=== PATIENT | female | born 1960 | race Caucasian/White ===

== ENCOUNTER 2019-10-02 05:45 | Emergency (ER) | payer OTHER, SELFPAY ==
--- NOTE | 2019-10-02 05:53 | DI.RAD.S_ITS ---
PROCEDURE: XR CHEST 1V INDICATIONS: chest pain TECHNIQUE: One view of the chest was acquired. COMPARISON: None. FINDINGS: Surgical changes and devices: None. Lungs and pleura: Lungs are clear. No pleural effusions or pneumothorax. Mediastinum: Mediastinal contours appear normal. Heart size is normal. Bones and chest wall: No suspicious bony lesions. Overlying soft tissues appear unremarkable. IMPRESSION: No acute cardiopulmonary abnormalities or focal airspace disease. Dictated by: Brandan Ceron M.D. on 10/02/2019 at 8:55 Approved by: Brandan Ceron M.D. on 10/02/2019 at 8:56
[2019-10-02 05:54] VITALS: BP 147/72; PULSE 67; RESP 18; TEMP 36.6; O2SAT 98; BMI 39.9
--- NOTE | 2019-10-02 05:55 | ED_ITS ---
HPI - Chest Pain <Trev MauricioDO jana - Last Filed: 10/03/19 03:43> General Chief Complaint: Chest Pain Stated Complaint: pain across shoulders/neck Time Seen by Provider: 10/02/19 05:45 Source: patient and family Mode of arrival: Ambulatory Limitations: no limitations History of Present Illness HPI narrative: 59-year-old female nonsmoker with history of morbid obesity and gallbladder disease presents with her significant other and a chief complaint of 2 episodes unprovoked mid to upper back pain and some left shoulder pain. The 1st episode was yesterday at 3:00 p.m. and the 2nd was this morning at 3:00 a.m. (3 hours ago). She denies any obvious provocation or palliation and admits to the radiation stated above. She denies any cardiac equivalent symptoms such as dizziness, weakness, lightheadedness nor shortness of breath, nausea, vomiting or diaphoresis. She denies any change in diet. She does state this feels not on like her gallbladder problems years ago. She denies any recent travel, history of blood clot, or cancer. MD complaint: other Onset (ago): hour(s) Duration: intermittent and improved Onset: during rest Pain location: left chest and other Severity: mild Quality: aching Pain radiation: back Relieving factors: nothing Exacerbating factors: nothing Treatments prior to arrival chest pain: none Related Data On Oral Contraceptives: No Home Medications Medication Instructions Recorded Confirmed cholecalciferol (vitamin D3) 10,000 u PO QDAY #0 11/15/16 [Vitamin D3] estradiol 1 mg PO EVERY OTHER DAY #0 11/15/16 furosemide [Lasix] 20 mg PO QDAY #0 11/15/16 lysine [L-Lysine] 1,000 mg PO QDAY #0 11/15/16 medroxyprogesterone 5 mg PO EVERY OTHER DAY #0 11/15/16 multivitamin [Multiple Vitamins] 1 tab PO QDAY #0 11/15/16 naproxen sodium [Aleve] 220 mg PO #0 11/15/16 potassium chloride 10 meq PO BID #0 11/15/16 sennosides [senna] 8.5 mg PO QDAY #0 11/15/16 Previous Rx's Medication Instructions Recorded docusate sodium [Colace] 100 mg PO BID #14 cap 12/14/16 oxycodone 5 mg PO Q4HP PRN #30 tab 12/14/16 oxycodone-acetaminophen 1 - 2 tab PO Q4HP PRN #30 tab 04/19/17 Allergies Allergy/AdvReac Type Severity Reaction Status Date / Time avocado [AVOCADO] Allergy Mild SCRATCHY Verified 10/02/19 07:28 THROAT PITTED FRUIT AVOCADOS Allergy Mild SCRATCHY Uncoded 10/02/19 07:28 THROAT Review of Systems <Trev Medeiros, DO - Last Filed: 10/03/19 03:43> Constitutional Constitutional: Denies chills, Denies fatigue, Denies fever(s), Denies frequent falls, Denies lethargy and Denies weakness Eyes Eyes: Denies change in vision, Denies eye discharge, Denies irritation and Denies loss of vision ENT Ears, Nose, Mouth, and Throat: Denies change in voice, Denies dizziness, Denies neck pain, Denies sore throat and Denies throat swelling Cardiovascular Cardiovascular: Reports chest pain, Denies irregular heart rhythm, Denies lightheadedness, Denies palpitations, Denies dyspnea, Denies dyspnea on exertion and Denies orthopnea Respiratory Respiratory: Denies cough, Denies dyspnea, Denies dyspnea on exertion and Denies wheezing Gastrointestinal Gastrointestinal: Denies abdominal pain, Denies change in bowel habits, Denies diarrhea, Denies nausea and Denies vomiting Genitourinary Genitourinary: Denies hematuria, Denies flank pain, Denies urinary incontinence and Denies urinary urgency Musculoskeletal Musculoskeletal: Reports back pain, Denies muscle weakness, Denies neck pain, Denies numbness and Denies tingling Integumentary/Breasts Skin/Breast: Denies pruritus, Denies erythema, Denies rash and Denies wounds Neurologic Neurologic: Denies behavioral changes, Denies confusion, Denies dizziness, Den ies frequent falls, Denies loss of vision, Denies numbness, Denies tingling and Denies weakness Psychiatric Psychiatric: Denies anxiety, Denies behavioral changes, Denies confusion, Denies depression, Denies homicidal ideation and Denies suicidal ideation Endocrine Endocrine: Denies fatigue, Denies flushing and Denies palpitations Hematologic/Lymphatic Hematologic/Lymphatic: Denies easy bruising Allergic/Immunologic Allergic/Immunologic: Denies urticaria, Denies throat swelling and Denies wheezing Exam <DO Gemma Russell Last Filed: 10/03/19 03:43> Initial Vital Signs Initial Vital Signs: Vital Signs Temperature 97.8 F 10/02/19 05:54 Pulse Rate 67 10/02/19 05:54 Respiratory Rate 18 10/02/19 05:54 Blood Pressure 147/72 H 10/02/19 05:54 Pulse Oximetry 98 10/02/19 05:54 <DO Gemma Duncan Last Filed: 10/02/19 09:03> Initial Vital Signs Initial Vital Signs: Vital Signs Temperature 97.8 F 10/02/19 05:54 Pulse Rate 67 10/02/19 05:54 Respiratory Rate 18 10/02/19 05:54 Blood Pressure 147/72 H 10/02/19 05:54 Pulse Oximetry 98 10/02/19 05:54 Course <DO Gemma Russell Last Filed: 10/03/19 03:43> Orders Ordered: Discontinued Medications Aspirin (Aspirin Chew) 324 mg PO NOW ONE Stop: 10/02/19 05:54 Last Admin: 10/02/19 06:00 Dose: 324 mg Documented by: MMCFARL Sodium Chloride (Normal Saline 0.9%) 1,000 mls @ 150 mls/hr IV CONT DARRYL Last Admin: 10/02/19 06:00 Dose: 150 mls/hr Documented by: MMCFARL Vital Signs Vital signs: Vital Signs - 8 hr 10/02/19 05:54 10/02/19 06:13 Temperature 97.8 F Pulse Rate 67 60 Respiratory Rate 18 12 Blood Pressure 147/72 H Blood Pressure [Left Arm] 130/78 Pulse Oximetry 98 96 <DO Gemma Duncan Last Filed: 10/02/19 09:03> Orders Ordered: Discontinued Medications Aspirin (Aspirin Chew) 324 mg PO NOW ONE Stop: 10/02/19 05:54 Last Admin: 10/02/19 06:00 Dose: 324 mg Documented by: MMCFARL Sodium Chloride (Normal Saline 0.9%) 1,000 mls @ 150 mls/hr IV CONT DARRYL Last Admin: 10/02/19 06:00 Dose: 150 mls/hr Documented by: MMCFARL Vital Signs Vital signs: Vital Signs - 8 hr 10/02/19 05:54 10/02/19 06:13 Temperature 97.8 F Pulse Rate 67 60 Respiratory Rate 18 12 Blood Pressure 147/72 H Blood Pressure [Left Arm] 130/78 Pulse Oximetry 98 96 MDM - Chest Pain <Trev Medeiros DO - Last Filed: 10/03/19 03:43> Lab Data Result diagrams: 10/02/19 06:00 10/02/19 06:00 Labs: Lab Results 10/02/19 10/02/19 10/02/19 Range/Units 06:00 06:00 06:00 WBC 4.6 (4.5-11.0) X10^3/uL RBC 4.45 (4.0-5.2) X10^6/uL Hgb 12.8 (12.0-16.0) g/dL Hct 38.8 (36-46) % MCV 87.2 (80-100) fL MCH 28.7 (26-34) PG MCHC 32.9 (30-36) % RDW 13.5 (11.6-14.8) % Plt Count 208 (150-400) X10^3/uL Neut % (Auto) 65.8 (50-75) % Lymph % (Auto) 17.4 L (25-40) % [place] % (Auto) 14.4 H (3-14) % Eos % (Auto) 2.1 (2-4) % Baso % (Auto) 0.3 (0-2) % Neut # (Auto) 3000 (8808-1984) /uL Lymph # (Auto) 800 L (7940-1090) /uL [place] # (Auto) 700 (0-900) /uL Eos # (Auto) 100 (0-450) /uL Baso # (Auto) 0 (0-100) /uL D-Dimer 825 H (<230) ng/mL Sodium 142 (137-145) mmol/L Potassium 4.3 (3.4-5.1) mmol/L Chloride 108 H (98-107) mmol/L Carbon Dioxide 26 (22-32) mmol/L BUN 19 H (7-17) mg/dL Creatinine 0.60 (0.52-1.04) mg/dL Estimated GFR > 60.0 (>60) mL/min BUN/Creatinine Ratio 31.7 H (6-22) Glucose 105 H (70-100) mg/dL Calcium 9.6 (8.4-10.2) mg/dL Total Bilirubin 0.7 (0.2-1.3) mg/dL AST 53 H (14-36) IU/L ALT 70 H (<35) IU/L Alkaline Phosphatase 99 (38-126) U/L Total Creatine Kinase 64 (30-135) U/L CK-MB (CK-2) TNP CK-MB (CK-2) Rel Index TNP Troponin I < 0.012 (0.01-0.034) ng/mL Total Protein 7.0 (6.3-8.2) g/dL Albumin 4.1 (3.5-5.0) g/dL Globulin 2.9 (1.7-4.1) g/dL Albumin/Globulin Ratio 1.4 (1.0-2.8) Lipase 86 (23-300) U/L 10/02/19 Range/Units 08:07 WBC (4.5-11.0) X10^3/uL RBC (4.0-5.2) X10^6/uL Hgb (12.0-16.0) g/dL Hct (36-46) % MCV (80-100) fL MCH (26-34) PG MCHC (30-36) % RDW (11.6-14.8) % Plt Count (150-400) X10^3/uL Neut % (Auto) (50-75) % Lymph % (Auto) (25-40) % [place] % (Auto) (3-14) % Eos % (Auto) (2-4) % Baso % (Auto) (0-2) % Neut # (Auto) (6560-1056) /uL Lymph # (Auto) (2798-3710) /uL [place] # (Auto) (0-900) /uL Eos # (Auto) (0-450) /uL Baso # (Auto) (0-100) /uL D-Dimer (<230) ng/mL Sodium (137-145) mmol/L Potassium (3.4-5.1) mmol/L Chloride (98-107) mmol/L Carbon Dioxide (22-32) mmol/L BUN (7-17) mg/dL Creatinine (0.52-1.04) mg/dL Estimated GFR (>60) mL/min BUN/Creatinine Ratio (6-22) Glucose (70-100) mg/dL Calcium (8.4-10.2) mg/dL Total Bilirubin (0.2-1.3) mg/dL AST (14-36) IU/L ALT (<35) IU/L Alkaline Phosphatase (38-126) U/L Total Creatine Kinase (30-135) U/L CK-MB (CK-2) CK-MB (CK-2) Rel Index Troponin I < 0.012 (0.01-0.034) ng/mL Total Protein (6.3-8.2) g/dL Albumin (3.5-5.0) g/dL Globulin (1.7-4.1) g/dL Albumin/Globulin Ratio (1.0-2.8) Lipase (23-300) U/L ECG Data Interpretation: EKG is normal sinus rhythm rate [60 ] and free of any signs of ischemia or ectopy. No ST segmental elevation or depression. No T wave inversions <Clive Reid DO - Last Filed: 10/02/19 09:03> Lab Data Labs: Lab Results 10/02/19 10/02/19 10/02/19 Range/Units 06:00 06:00 06:00 WBC 4.6 (4.5-11.0) X10^3/uL RBC 4.45 (4.0-5.2) X10^6/uL Hgb 12.8 (12.0-16.0) g/dL Hct 38.8 (36-46) % MCV 87.2 (80-100) fL MCH 28.7 (26-34) PG MCHC 32.9 (30-36) % RDW 13.5 (11.6-14.8) % Plt Count 208 (150-400) X10^3/uL Neut % (Auto) 65.8 (50-75) % Lymph % (Auto) 17.4 L (25-40) % [place] % (Auto) 14.4 H (3-14) % Eos % (Auto) 2.1 (2-4) % Baso % (Auto) 0.3 (0-2) % Neut # (Auto) 3000 (0153-5224) /uL Lymph # (Auto) 800 L (9081-9424) /uL [place] # (Auto) 700 (0-900) /uL Eos # (Auto) 100 (0-450) /uL Baso # (Auto) 0 (0-100) /uL D-Dimer 825 H (<230) ng/mL Sodium 142 (137-145) mmol/L Potassium 4.3 (3.4-5.1) mmol/L Chloride 108 H (98-107) mmol/L Carbon Dioxide 26 (22-32) mmol/L BUN 19 H (7-17) mg/dL Creatinine 0.60 (0.52-1.04) mg/dL Estimated GFR > 60.0 (>60) mL/min BUN/Creatinine Ratio 31.7 H (6-22) Glucose 105 H (70-100) mg/dL Calcium 9.6 (8.4-10.2) mg/dL Total Bilirubin 0.7 (0.2-1.3) mg/dL AST 53 H (14-36) IU/L ALT 70 H (<35) IU/L Alkaline Phosphatase 99 (38-126) U/L Total Creatine Kinase 64 (30-135) U/L CK-MB (CK-2) TNP CK-MB (CK-2) Rel Index TNP Troponin I < 0.012 (0.01-0.034) ng/mL Total Protein 7.0 (6.3-8.2) g/dL Albumin 4.1 (3.5-5.0) g/dL Globulin 2.9 (1.7-4.1) g/dL Albumin/Globulin Ratio 1.4 (1.0-2.8) Lipase 86 (23-300) U/L 10/02/19 Range/Units 08:07 WBC (4.5-11.0) X10^3/uL RBC (4.0-5.2) X10^6/uL Hgb (12.0-16.0) g/dL Hct (36-46) % MCV (80-100) fL MCH (26-34) PG MCHC (30-36) % RDW (11.6-14.8) % Plt Count (150-400) X10^3/uL Neut % (Auto) (50-75) % Lymph % (Auto) (25-40) % [place] % (Auto) (3-14) % Eos % (Auto) (2-4) % Baso % (Auto) (0-2) % Neut # (Auto) (5214-1058) /uL Lymph # (Auto) (3073-3187) /uL [place] # (Auto) (0-900) /uL Eos # (Auto) (0-450) /uL Baso # (Auto) (0-100) /uL D-Dimer (<230) ng/mL Sodium (137-145) mmol/L Potassium (3.4-5.1) mmol/L Chloride (98-107) mmol/L Carbon Dioxide (22-32) mmol/L BUN (7-17) mg/dL Creatinine (0.52-1.04) mg/dL Estimated GFR (>60) mL/min BUN/Creatinine Ratio (6-22) Glucose (70-100) mg/dL Calcium (8.4-10.2) mg/dL Total Bilirubin (0.2-1.3) mg/dL AST (14-36) IU/L ALT (<35) IU/L Alkaline Phosphatase (38-126) U/L Total Creatine Kinase (30-135) U/L CK-MB (CK-2) CK-MB (CK-2) Rel Index Troponin I < 0.012 (0.01-0.034) ng/mL Total Protein (6.3-8.2) g/dL Albumin (3.5-5.0) g/dL Globulin (1.7-4.1) g/dL Albumin/Globulin Ratio (1.0-2.8) Lipase (23-300) U/L [facility] Narrative Medical decision making narrative: Dr Reid: Received turned over. Review patient's history and physical exam and labs. I did discuss the patient's 2nd troponin with her. CT scan shows no signs of pneumonia or pulmonary embolism or aortic dissection. Troponins negative x2 with the 2nd being greater than 6 hours after the onset of her symptoms. We also discussed the dilation of her distal esophagus. Informed her that she needed talk with her primary doctor about this and whether not she needs to follow up with GI. We also talked about talking with her primary doctor about the symptoms of brought her into the emergency department and further workup. She was given return precautions and follow-up instructions. She expressed understanding and agreement plan. Discharge Plan Departure Patient Disposition: Home Clinical Impression: Back pain Qualifiers: Back pain location: thoracic back pain Chronicity: acute Back pain laterality: unspecified Qualified Code(s): M54.6 - Pain in thoracic spine Discharge Date/Time: 10/02/19 09:17 Activity Restrictions/Additional Instructions: Continue all of your medications as directed. I do recommend that you talk with your primary provider about the symptoms that brought you to the emergency department today and also the findings on the CT scan. Discussed whether not you need further workup for your heart or if you need a referral to see Gastroenterology. Return to the emergency department for any new or worsening symptoms Prescriptions: No Action estradiol 1 MG tablet 1 mg PO EVERY OTHER DAY Qty: 0 RF: 0 medroxyprogesterone 5 MG tablet 5 mg PO EVERY OTHER DAY Qty: 0 RF: 0 potassium chloride 10 MEQ capsule, extended release 10 meq PO BID Qty: 0 RF: 0 furosemide [Lasix] 20 MG tablet 20 mg PO QDAY Qty: 0 RF: 0 sennosides [senna] 8.6 mg tablet 8.5 mg PO QDAY Qty: 0 RF: 0 naproxen sodium [Aleve] 220 MG capsule 220 mg PO Qty: 0 RF: 0 cholecalciferol (vitamin D3) [Vitamin D3] 4,000 UNIT capsule 10,000 u PO QDAY Qty: 0 RF: 0 multivitamin [Multiple Vitamins] 1 EACH tablet 1 tab PO QDAY Qty: 0 RF: 0 lysine [L-Lysine] 500 MG tablet 1,000 mg PO QDAY Qty: 0 RF: 0 oxycodone 5 MG tablet 5 mg PO Q4HP PRNQty: 30 RF: 0 docusate sodium [Colace] 100 MG capsule 100 mg PO BID Qty: 14 RF: 1 oxycodone-acetaminophen 5 MG/325 MG tablet 1 - 2 tab PO Q4HP PRNQty: 30 RF: 0 Referrals: Jose Rafael Garza MD [Primary Care Provider] -
[2019-10-02] MEDS: SODIUM CHLORIDE 0.9% 1,000 ML 150 ML IV (06:00)
[2019-10-02] MEDS: ASPIRIN 81 MG CHEW TAB 324 MG PO (06:00)
[2019-10-02 06:13] VITALS: BP 130/78; PULSE 60; RESP 12; O2SAT 96
[2019-10-02 06:29] LABS: Add Manual Diff / Slide Review NO; Basophils Absolute Auto 0 /uL (0-100); Basophils Percent Auto 0.3 % (0-2); Eosinophils Absolute Auto 100 /uL (0-450); Eosinophils Percent Auto 2.1 % (2-4); Hematocrit 38.8 % (36-46); Hemoglobin 12.8 g/dL (12.0-16.0); Lymphocytes Absolute Auto 800 /uL (1100-4500); Lymphocytes Percent Auto 17.4 % (25-40); Mean Corpuscular HGB Conc 32.9 % (30-36); Mean Corpuscular Hemoglobin 28.7 PG (26-34); Mean Corpuscular Volume 87.2 fL (80-100); Monocytes Absolute Auto 700 /uL (0-900); Monocytes Percent Auto 14.4 % (3-14); Neutrophils Absolute Auto 3000 /uL (1500-7000); Neutrophils Percent Auto 65.8 % (50-75); Platelet Count 208 X10^3/uL (150-400); Red Blood Cell Count 4.45 X10^6/uL (4.0-5.2); Red Cell Distribution Width 13.5 % (11.6-14.8); White Blood Cell Count 4.6 X10^3/uL (4.5-11.0)
[2019-10-02 06:33] LABS: Alanine Aminotransferase 70 IU/L (<35); Albumin 4.1 g/dL (3.5-5.0); Albumin Globulin Ratio 1.4 (1.0-2.8); Alkaline Phosphatase 99 U/L (38-126); Aspartate Aminotransferase 53 IU/L (14-36); BUN Creatinine Ratio 31.7 (6-22); Bilirubin Total 0.7 mg/dL (0.2-1.3); Blood Urea Nitrogen 19 mg/dL (7-17); Calcium 9.6 mg/dL (8.4-10.2); Carbon Dioxide 26 mmol/L (22-32); Chloride 108 mmol/L (98-107); Creatine Kinase 64 U/L (30-135); Estimated Glomerular Filt Rate > 60.0 mL/min (>60); Globulin 2.9 g/dL (1.7-4.1); Glucose 105 mg/dL (70-100); HEMOLYSIS < 15 (0-50); Lipase 86 U/L (23-300); Potassium 4.3 mmol/L (3.4-5.1); Sodium 142 mmol/L (137-145)
[2019-10-02 06:41] LABS: D Dimer 825 ng/mL (<230)
[2019-10-02 06:45] LABS: Troponin I < 0.012 ng/mL (0.01-0.034)
--- NOTE | 2019-10-02 06:51 | DI.CT.S_ITS ---
PROCEDURE: CT ANGIO CHEST PE PROTOCOL INDICATIONS: chest pains, radiation to back TECHNIQUE: After the administration of intravenous contrast, 2 mm thick sections acquired from the pulmonary apices to the posterior costophrenic angles. 3-dimensional maximum intensity projection (MIP) coronal and sagittal reformats were then acquired through the thorax. For radiation dose reduction, the following was used: automated exposure control, adjustment of mA and/or kV according to patient size. COMPARISON: [facility], CT, KIDNEY/ URETER/BLADDER, 04/18/2017, 22:51. FINDINGS: Image quality: Excellent. Pulmonary arteries: Pulmonary arteries are normal in size, and demonstrate no intraluminal filling defects to suggest central pulmonary embolism. Lungs and pleura: Mild bibasilar atelectasis. No pleural effusions or pneumothorax. Central and peripheral airways are patent. Mediastinum: Heart size is normal, without pericardial effusion. No mediastinal or hilar adenopathy. The ascending thoracic aorta is ectatic measuring 4 cm in diameter. Esophagus is normal in caliber. Mild concentric thickening of the distal esophagus. Bones and chest wall: No suspicious bony lesions. Ribs and thoracic spine appear intact throughout. Thyroid gland is normal. No axillary or supraclavicular adenopathy. Abdomen: Visualized upper abdominal solid organs appear normal in the early arterial phase of enhancement. IMPRESSION: 1. No evidence for pulmonary embolism. 2. Ectatic ascending thoracic aorta measuring 4 cm. 3. Mild concentric thickening of the distal esophagus. Dictated by: Rei Mckeon M.D. on 10/02/2019 at 7:38 Approved by: Rei Mckeon M.D. on 10/02/2019 at 7:45
[2019-10-02 07:00] VITALS: BP 135/75; PULSE 58; RESP 17; O2SAT 96
[2019-10-02 07:30] VITALS: BP 153/74; PULSE 56; RESP 18; O2SAT 97
--- NOTE | 2019-10-02 08:16 | ED_ITS ---
HPI - General Adult General Chief complaint: Chest Pain Stated complaint: pain across shoulders/neck Time Seen by Provider: 10/02/19 05:45 Source: patient and family Mode of arrival: Ambulatory Limitations: no limitations Related Data Home Medications Medication Instructions Recorded Confirmed cholecalciferol (vitamin D3) 10,000 u PO QDAY #0 11/15/16 [Vitamin D3] estradiol 1 mg PO EVERY OTHER DAY #0 11/15/16 furosemide [Lasix] 20 mg PO QDAY #0 11/15/16 lysine [L-Lysine] 1,000 mg PO QDAY #0 11/15/16 medroxyprogesterone 5 mg PO EVERY OTHER DAY #0 11/15/16 multivitamin [Multiple Vitamins] 1 tab PO QDAY #0 11/15/16 naproxen sodium [Aleve] 220 mg PO #0 11/15/16 potassium chloride 10 meq PO BID #0 11/15/16 sennosides [senna] 8.5 mg PO QDAY #0 11/15/16 Previous Rx's Medication Instructions Recorded docusate sodium [Colace] 100 mg PO BID #14 cap 12/14/16 oxycodone 5 mg PO Q4HP PRN #30 tab 12/14/16 oxycodone-acetaminophen 1 - 2 tab PO Q4HP PRN #30 tab 04/19/17 Allergies Allergy/AdvReac Type Severity Reaction Status Date / Time avocado [AVOCADO] Allergy Mild SCRATCHY Verified 10/02/19 07:28 THROAT PITTED FRUIT AVOCADOS Allergy Mild SCRATCHY Uncoded 10/02/19 07:28 THROAT Review of Systems Constitutional Constitutional: Denies frequent falls and Denies weakness Eyes Eyes: Denies loss of vision ENT Ears, Nose, Mouth, and Throat: Denies dizziness Musculoskeletal Musculoskeletal: Denies numbness and Denies tingling Neurologic Neurologic: Denies behavioral changes, Denies confusion, Denies dizziness, Denies frequent falls, Denies loss of vision, Denies numbness, Denies tingling and Denies weakness Psychiatric Psychiatric: Denies behavioral changes and Denies confusion Exam Initial Vital Signs Initial Vital Signs: Vital Signs Temperature 97.8 F 10/02/19 05:54 Pulse Rate 67 10/02/19 05:54 Respiratory Rate 18 10/02/19 05:54 Blood Pressure 147/72 H 10/02/19 05:54 Pulse Oximetry 98 10/02/19 05:54 Course Orders Ordered: ED Orders 10/02/19 05:53 XR chest 1V Stat EKG-12 Lead Stat 10/02/19 06:00 Complete Blood Count AUTO DIFF Stat Comprehensive Metabolic Panel Stat D Dimer Stat Lipase Stat Troponin & CK Cardiac Panel Stat 10/02/19 06:51 CT angio chest PE protocol Stat 10/02/19 08:00 Troponin I Stat Sodium Chloride (Normal Saline 0.9%) 1,000 mls @ 150 mls/hr IV CONT DARRYL Last Admin: 10/02/19 06:00 Dose: 150 mls/hr Documented by: KARMA Discontinued Medications Aspirin (Aspirin Chew) 324 mg PO NOW ONE Stop: 10/02/19 05:54 Last Admin: 10/02/19 06:00 Dose: 324 mg Documented by: KARMA Vital Signs Vital signs: Vital Signs - 8 hr 10/02/19 05:54 10/02/19 06:13 Temperature 97.8 F Pulse Rate 67 60 Respiratory Rate 18 12 Blood Pressure 147/72 H Blood Pressure [Left Arm] 130/78 Pulse Oximetry 98 96 Medical Decision Making Lab Data Result diagrams: 10/02/19 06:00 10/02/19 06:00 Labs: Lab Results 10/02/19 10/02/19 10/02/19 Range/Units 06:00 06:00 06:00 WBC 4.6 (4.5-11.0) X10^3/uL RBC 4.45 (4.0-5.2) X10^6/uL Hgb 12.8 (12.0-16.0) g/dL Hct 38.8 (36-46) % MCV 87.2 (80-100) fL MCH 28.7 (26-34) PG MCHC 32.9 (30-36) % RDW 13.5 (11.6-14.8) % Plt Count 208 (150-400) X10^3/uL Neut % (Auto) 65.8 (50-75) % Lymph % (Auto) 17.4 L (25-40) % [place] % (Auto) 14.4 H (3-14) % Eos % (Auto) 2.1 (2-4) % Baso % (Auto) 0.3 (0-2) % Neut # (Auto) 3000 (9130-2998) /uL Lymph # (Auto) 800 L (7596-5568) /uL [place] # (Auto) 700 (0-900) /uL Eos # (Auto) 100 (0-450) /uL Baso # (Auto) 0 (0-100) /uL D-Dimer 825 H (<230) ng/mL Sodium 142 (137-145) mmol/L Potassium 4.3 (3.4-5.1) mmol/L Chloride 108 H (98-107) mmol/L Carbon Dioxide 26 (22-32) mmol/L BUN 19 H (7-17) mg/dL Creatinine 0.60 (0.52-1.04) mg/dL Estimated GFR > 60.0 (>60) mL/min BUN/Creatinine Ratio 31.7 H (6-22) Glucose 105 H (70-100) mg/dL Calcium 9.6 (8.4-10.2) mg/dL Total Bilirubin 0.7 (0.2-1.3) mg/dL AST 53 H (14-36) IU/L ALT 70 H (<35) IU/L Alkaline Phosphatase 99 (38-126) U/L Total Creatine Kinase 64 (30-135) U/L CK-MB (CK-2) TNP CK-MB (CK-2) Rel Index TNP Troponin I < 0.012 (0.01-0.034) ng/mL Total Protein 7.0 (6.3-8.2) g/dL Albumin 4.1 (3.5-5.0) g/dL Globulin 2.9 (1.7-4.1) g/dL Albumin/Globulin Ratio 1.4 (1.0-2.8) Lipase 86 (23-300) U/L Discharge Plan Departure Prescriptions: No Action estradiol 1 MG tablet 1 mg PO EVERY OTHER DAY Qty: 0 RF: 0 medroxyprogesterone 5 MG tablet 5 mg PO EVERY OTHER DAY Qty: 0 RF: 0 potassium chloride 10 MEQ capsule, extended release 10 meq PO BID Qty: 0 RF: 0 furosemide [Lasix] 20 MG tablet 20 mg PO QDAY Qty: 0 RF: 0 sennosides [senna] 8.6 mg tablet 8.5 mg PO QDAY Qty: 0 RF: 0 naproxen sodium [Aleve] 220 MG capsule 220 mg PO Qty: 0 RF: 0 cholecalciferol (vitamin D3) [Vitamin D3] 4,000 UNIT capsule 10,000 u PO QDAY Qty: 0 RF: 0 multivitamin [Multiple Vitamins] 1 EACH tablet 1 tab PO QDAY Qty: 0 RF: 0 lysine [L-Lysine] 500 MG tablet 1,000 mg PO QDAY Qty: 0 RF: 0 oxycodone 5 MG tablet 5 mg PO Q4HP PRNQty: 30 RF: 0 docusate sodium [Colace] 100 MG capsule 100 mg PO BID Qty: 14 RF: 1 oxycodone-acetaminophen 5 MG/325 MG tablet 1 - 2 tab PO Q4HP PRNQty: 30 RF: 0
[2019-10-02 08:51] LABS: Troponin I < 0.012 ng/mL (0.01-0.034)
[2019-10-02 09:17] VITALS: BP 123/74; PULSE 72; RESP 18; O2SAT 100
--- NOTE | 2019-11-05 15:05 | PC.NURSE ---
Normal Saline 0.9% at 150ml/hr by IV. started on 10/02/19 at 0600 til 0900, providing 450ml of normal saline total. ry lubin.
== END 2019-10-02 09:17 | disposition home or self-care (01) ==
PROVIDERS: Emergency Medicine; Emergency Provider Emergency Medicine; Family Provider Internal Medicine; PCP Internal Medicine
DX: M54.6 Pain in thoracic spine (principal); R07.9 Chest pain, unspecified; M25.512 Pain in left shoulder; E66.01 Morbid (severe) obesity due to excess calories
CPT/HCPCS: 36415; 71045; 71275; 80053; 82550; 83690; 84484; 85025; 85379; 93005; 96360; 96361; 99284

== ENCOUNTER → 2023-09-27 12:35 | Outpatient (CLI) | payer OTHER, SELFPAY ==
--- NOTE | 2023-09-27 12:38 | DI.US.S_ITS ---
PROCEDURE: US PELVIC COMPLETE INDICATIONS: post menopausal bleeding TECHNIQUE: Real-time scanning was performed of the pelvic organs, with image documentation. Additional endovaginal scanning was necessary due to incomplete visualization of the adnexal and endometrial structures by transabdominal scanning. COMPARISON: None. FINDINGS: Uterus: Uterus is anteverted and normal in size at 9.4 x 4.3 x 4.0 cm. The myometrium is heterogeneous. The endometrium measures 10 mm combined thickness. Endometrium is thickened. Ovaries: The right ovary is not seen. The left ovary measures 5.3 x 2.8 x 2.7 cm, with a calculated ovarian volume of 20.6 cc. Enlarged left ovary with shadowing, left are in mass cannot be excluded. Other: No pathologic free abdominal or pelvic fluid. IMPRESSION: Thickened endometrium for postmenopausal female. Recommend endometrial sampling or short-term follow-up ultrasound in 6-12 weeks. The left ovary is enlarged measuring up to 5.3 cm in 20.6 cc. There is associated shadowing. Mass cannot definitively be excluded. Recommend short-term follow-up. Right ovary is not seen. We strive to produce accurate, complete, and clear reports of imaging services. To assist us in improving patient care, this report was composed using standard report templates and voice recognition software. Therefore, it may contain abnormal punctuation, insertions and/or omissions. Occasional wrong-word or sound-alike substitutions may occur. Though we review the report and make efforts to correct it, we do recommend that the report be read carefully in proper context to recognize any text inaccuracies. Dictated by: Bayron Gabriel M.D. on 09/27/2023 at 13:38 Approved by: Bayron Gabriel M.D. on 09/27/2023 at 13:41
== END ==
LOC: US 12:37
PROVIDERS: Family Provider Internal Medicine; PCP Student in an Organized Health Care Education/Training Program; Referring Provider Student in an Organized Health Care Education/Training Program; Visit Provider Student in an Organized Health Care Education/Training Program
DX: N95.0 Postmenopausal bleeding (principal); R93.89 Abnormal findings on diagnostic imaging of other specified body structures; N83.8 Other noninflammatory disorders of ovary, fallopian tube and broad ligament
CPT/HCPCS: 76830; 76856

== ENCOUNTER → 2023-11-02 09:56 | Outpatient (CLI) | payer OTHER, SELFPAY ==
--- NOTE | 2023-11-02 09:58 | DI.CT.S_ITS ---
PROCEDURE: CT ABDOMEN PELVIS WO/W CON INDICATIONS: Hematuria, unspecified TECHNIQUE: Optional 5 mm thick noncontrast images acquired from the diaphragm to the symphysis pubis. After the administration of intravenous contrast, 5 mm thick images acquired from the diaphragm to the symphysis pubis after a 10-minute delay. 2 mm thick coronal and sagittal reformats were then performed of the kidneys and ureters. For radiation dose reduction, the following was used: automated exposure control, adjustment of mA and/or kV according to patient size. COMPARISON: [facility], CT, KIDNEY/ URETER/BLADDER, 04/18/2017, 22:51. FINDINGS: Image quality: Diagnostic. Kidneys and Ureters: Both kidneys are normal in size, without hydronephrosis or nephrolithiasis. No perinephric fat stranding. There is normal bilateral renal enhancement. Renal calyces appear normal in morphology when filled with contrast. Opacified portions of both ureters demonstrate normal caliber Bladder: Bladder wall thickness is normal. No calcified bladder stones. OTHER: Lower chest: Cardiomegaly.. Liver: No solid mass. Hepatomegaly and moderate diffuse hepatic steatosis. Gallbladder: Surgically absent Biliary ducts: No biliary dilation. Pancreas: No ductal dilation. Spleen: Size is within normal limits. Adrenal Glands: No adrenal nodules. Stomach and Bowel: Normal colonic caliber, without significant wall thickening. Peritoneum: No abnormal intraperitoneal fluid. No free air. Ventral Wall: No hernia. Abdominal Nodes: No retroperitoneal or mesenteric adenopathy by size criteria. Vessels: Aorta and inferior vena cava are normal in size. PELVIS: Pelvic Organs: Fibroid uterus with posterior exophytic fibroids.. Pelvic Nodes: No enlarged lymph nodes. Miscellaneous: No inguinal hernias are seen. Bones: No aggressive osseous abnormality. Severe degenerative change in the lumbar spine. 10 mm anterolisthesis of L5 on S1. Severe bilateral foraminal narrowing with bilateral foraminal L5 nerve root impingement. >> IMPRESSION: 1. No renal stone, ureteral stone, hydronephrosis, or findings suspicious for malignancy. 2. Hepatomegaly, moderate diffuse hepatic steatosis. 3. Remote cholecystectomy. 4. No acute abdominal process. 5. Uterine fibroids. Dictated by: Olvin Elaine M.D. on 11/02/2023 at 19:44 Approved by: Olvin Elaine M.D. on 11/02/2023 at 19:50
[2023-11-02 10:36] LABS: Estimated Glomerular Filt Rate > 60 mL/min (>60)
== END ==
LOC: CT 09:57
PROVIDERS: Radiology Diagnostic Radiology; Family Provider Internal Medicine; PCP Student in an Organized Health Care Education/Training Program; Referring Provider Internal Medicine; Visit Provider Internal Medicine
DX: K76.0 Fatty (change of) liver, not elsewhere classified (principal); R31.9 Hematuria, unspecified; D25.9 Leiomyoma of uterus, unspecified; I51.7 Cardiomegaly; M47.816 Spondylosis without myelopathy or radiculopathy, lumbar region; Z90.49 Acquired absence of other specified parts of digestive tract
CPT/HCPCS: 36415; 74178; 82565; Q9967

== ENCOUNTER 2023-12-18 09:31 | Day surgery (SDC) | payer OTHER, SELFPAY ==
[2023-10-31 13:09] VITALS: BMI 61.5
--- NOTE | 2023-12-18 | PATH_ITS ---
[facility] Accession Number: [id number] No. of containers..01 Tissue . 01 Material submitted: . endometrium - ENDOMETRIAL POLYP . 01 Diagnosis: ENDOMETRIAL POLYP, EXCISION: Consistent with endometrial polyp. Negative for atypical hyperplasia or malignancy. MRV 12/25/2023 1310 Local . 01 Electronically signed: . Teto Pearce MD, PhD, Pathologist NPI- [id number] . 01 Gross description: . ENDOMETRIAL POLYP: Received in formalin are minute fragments of mucoid and hemorrhagic material measuring 4.0 x 4.0 x 0.2 cm in aggregate. Submitted in toto in 2 cassettes. /NICK 12/21/2023 1849 Local . 01 Pathologist provided ICD-10: N95.0, N84.0 . 01 CPT . 179258 Specimen Comment: A courtesy copy of this report has been sent to [facility] Pathology Performed at: 01 [facility] [address] [place] [address], [place], [place] [id number] MD James Pittman MD Phone: [phone]
--- NOTE | 2023-12-18 09:57 | PM.HP.1 ---
History of Present Illness History of Present Illness Chief complaint: Diagnostic Hysteroscopy w/D&C Narrative: 63-year-old female presenting today for planned hysteroscopy/D&C due to postmenopausal bleeding. She reports no vaginal bleeding since her last visit. She had less vaginal bleeding since the endocervical polyp was removed in September. Prior HPI 09/2023: 63-year-old female presenting today for consultation regarding postmenopausal bleeding. She has not had vaginal bleeding for over 9 years, until the last month. She states that she had significant bleeding where she awoke with her bed sheets soaked. [facility] Medical History (Updated 11/02/23 @ 16:28 by Carmen Swain DO) Postmenopausal bleeding Morbid obesity with BMI of 60.0-69.9, adult Surgical History (Updated 11/02/23 @ 16:28 by Carmen Swain DO) Status post cervical polyp removal Social History household members: spouse Smoking Status: Never smoker Meds Home Medications and Allergies Home Medications Medication Instructions Recorded Confirmed Type cholecalciferol (vitamin D3) 100 10,000 u PO QDAY ##0 11/15/16 11/02/23 History mcg (4,000 unit) capsule (Vitamin D3) furosemide 20 mg tablet (Lasix) 20 mg PO QDAY ##0 11/15/16 11/02/23 History lysine 500 mg tablet (L-Lysine) 1,000 mg PO QDAY ##0 11/15/16 11/02/23 History multivitamin (Multiple Vitamins 1 tab PO QDAY ##0 11/15/16 11/02/23 History tablet) naproxen sodium 220 mg capsule 220 mg PO ##0 11/15/16 11/02/23 History (Aleve) potassium chloride 10 mEq 10 meq PO BID ##0 11/15/16 11/02/23 History capsule,extended release sennosides 8.6 mg tablet (senna) 8.5 mg PO QDAY ##0 11/15/16 11/02/23 History docusate sodium 100 mg capsule 100 mg PO BID #14 caps 12/14/16 11/02/23 Rx (Colace) phentermine 15 mg capsule 15 mg PO DAILY 11/21/23 History Allergies Allergy/AdvReac Type Severity Reaction Status Date / Time avocado [AVOCADO] Allergy Mild SCRATCHY Verified 11/02/23 14:52 THROAT Review of Systems Review of Systems ROS: Yes All systems reviewed with the patient and are negative except as otherwise documented Exam Const General: comfortable and well developed Nutritional Appearance: obese Resp Effort & Inspection: normal respiratory effort and able to speak in complete sentences Neuro Cognition: normal cognition Speech: speech normal Extrem General: normal to inspection Psych Mood: congruent mood Affect: normal affect Objective Imaging US - abdomen: Radiologist's impression: FINDINGS: Uterus: Uterus is anteverted and normal in size at 9.4 x 4.3 x 4.0 cm. The myometrium is heterogeneous. The endometrium measures 10 mm combined thickness. Endometrium is thickened. Ovaries: The right ovary is not seen. The left ovary measures 5.3 x 2.8 x 2.7 cm, with a calculated ovarian volume of 20.6 cc. Enlarged left ovary with shadowing, left are in mass cannot be excluded. Other: No pathologic free abdominal or pelvic fluid. IMPRESSION: Thickened endometrium for postmenopausal female. Recommend endometrial sampling or short-term follow-up ultrasound in 6-12 weeks. The left ovary is enlarged measuring up to 5.3 cm in 20.6 cc. There is associated shadowing. Mass cannot definitively be excluded. Recommend short-term follow-up. Right ovary is not seen. We strive to produce accurate, complete, and clear reports of imaging services. To assist us in improving patient care, this report was composed using standard report templates and voice recognition software. Therefore, it may contain abnormal punctuation, insertions and/or omissions. Occasional wrong-word or sound-alike substitutions may occur. Though we review the report and make efforts to correct it, we do recommend that the report be read carefully in proper context to recognize any text inaccuracies. Dictated by: Bayron Gabriel M.D. on 09/27/2023 at 13:38 Approved by: Bayron Gabriel M.D. on 09/27/2023 at 13:41 Assessment & Plan Assessment and plan (1) Postmenopausal bleeding: Status: Acute Assessment & Plan narrative: 63yo F presenting for hysteroscopy with D&C due to postmenopausal bleeding. -reviewed surgical consent again, which was resigned today due to >30 days since last visit -plan for outpatient surgery -will call pt with results from pathology when available Surgery consent We discussed the risks/benefits/alternatives to the proposed procedure, to include: -risk of bleeding, requiring medications, blood products, or other procedures as indicated -risk of infection, requiring prolonged hospital stay or other procedures -risk of injury to other structures, including bowel, bladder, blood vessels, nerves, etc. which may also require additional procedures -risk of adverse reaction to anesthesia or medications -risk of venous thromboembolism and associated sequelae -risk of rare complications such as cardiac arrest, or extremely rarely, Patient is aware of the risks, and desires to proceed with planned surgical procedure. Time Spent With Patient Time with patient: less than 30 minutes
--- NOTE | 2023-12-18 10:03 | SUR.OPER ---
Lithotomy on padded OR bed, head on pillow, arms secured on padded arm boards at <90 degrees abduction. Legs secured in padded yellow fins stirrups.
[2023-12-18 10:07] VITALS: BP 149/82; PULSE 82; RESP 16; TEMP 36.3; O2SAT 95; BMI 59.9
[2023-12-18] MEDS: LACTATED RINGERS 1,000 ML 42 ML IV (10:26)
[2023-12-18] MEDS: ACETAMINOPHEN IV 1,000 MG/100 ML VIAL 400 MG IV (11:00)
--- NOTE | 2023-12-18 11:36 | PM.OP.1 ---
Operative Date/Time/Diagnoses Date of procedure: 12/18/23 Time of procedure: 11:00 Pre-op diagnosis: Postmenopausal bleeding Post-op diagnosis: same Procedure & Clinicians Procedure: Diagnostic hysteroscopy Hysteroscopic polypectomy Dilation and curettage Same procedure as scheduled: Yes Indications: 63yo F with postmenopausal bleeding, s/p endocervical polyp removal, however with thickened endometrial lining on US. Unable to complete office endometrial biopsy, thus she was counseled and consented for the above procedures. Surgeon: Carmen Swain Click Yes if Unassisted: Yes Anesthesia Type: General Operative Notes Findings: Pedunculated endometrial polyp noted in the endometrial cavity. Small endocervical polyp also noted in the endocervical canal. Specimen(s): other (endometrial polyp) Estimated Blood Loss (mL): 50 Procedure in detail: The risks, benefits, indications and alternatives of the procedure were reviewed with the patient and informed consent was obtained. The pt was taken to the operating room where general anesthesia was obtained without difficulty. The pt was then placed in the low lithotomy position using gel-padded Anthaniel stirrups. Sequential compression devices were placed bilaterally for VTE prophylaxis. The pt was then prepped and draped in the sterile fashion. A sterile speculum was placed in the patient?s vagina and the cervix was visualized. A single tooth tenaculum was used to grasp the anterior lip of the cervix. The cervix was then gently, dilated to a size 8 Hegar dilator. The operative hysteroscope was first primed and pressure set. The operative hysteroscope was then advanced through the endocervical canal under direct visualization. The uterus was distended with warm saline, and notable for the above findings. The Myosure Reach was then inserted into the operative hysteroscope. The polypoid tissue was removed with the Myosure, and global endometrial sampling was also performed. The operative hysteroscope was then removed under direct visualization. Tissue obtained was sent to pathology for review. The single tooth tenaculum was removed from the anterior lip of the cervix. The tenaculum site was noted to be hemostatic after direct pressure and silver nitrate was applied. All instruments were then removed from the patient?s vagina. Hysteroscopic fluid deficit was 170cc of normal saline. The patient tolerated the procedure well. At the completion of the case the sponge and needle counts were correct x 2. The patient was taken to the PACU in stable condition. Complications: none Post-operative Condition: stable Disposition: PACU Plan for aftercare: Discharge to home once patient is meeting all discharge criteria.
[2023-12-18 11:44] VITALS: BP 131/71; PULSE 81; RESP 14; TEMP 36.3; O2SAT 95
[2023-12-18 11:49] VITALS: BP 120/73; PULSE 79; RESP 12; O2SAT 96
[2023-12-18 11:54] VITALS: BP 131/71; PULSE 81; RESP 14; TEMP 36.3; O2SAT 95
[2023-12-18 11:58] VITALS: BP 134/75; PULSE 74; RESP 12; O2SAT 97
== END 2023-12-18 12:25 | disposition home or self-care (01) ==
PROVIDERS: Family Provider Internal Medicine; PCP Student in an Organized Health Care Education/Training Program; Referring Provider Student in an Organized Health Care Education/Training Program; Visit Provider Student in an Organized Health Care Education/Training Program
PROC: 0UDB8ZZ Extraction of Endometrium, Via Natural or Artificial Opening Endoscopic (ICD-10-PCS; CPT 58558; principal; 2023-12-18 10:45)
DX: N95.0 Postmenopausal bleeding (principal); N84.0 Polyp of corpus uteri
CPT/HCPCS: 58558; J0136; J0330; J1100; J1885; J2405; J2704; J3010